=== PATIENT | male | born 1945 | race Caucasian/White ===

== ENCOUNTER 2017-12-22 16:56 | Inpatient (IN) ==
--- NOTE | 2017-12-22 17:20 | ED ---
HPI General Chief Complaint: Respiratory Symptoms Stated Complaint: SOB Time Seen by Provider: 12/22/17 17:07 History of Present Illness This patient is brought to the ER by paramedics from the assisted. He has COPD and dementia. Is been short of breath wheezing and congestion for 2 days. Reportedly had a temp of 101. He received a nebulizer in route and a dose of Solu-Medrol. Symptom severity is moderate. No alleviating factors. No exacerbating factors. Duration 2 days. He is not having any chest pain. Related Data Home Medications Medication Instructions Recorded Confirmed budesonide-formoterol [Symbicort] 2 puff INHALATION BID 12/22/17 12/22/17 calcium carbonate-vitamin D3 1 tab PO BID 12/22/17 12/22/17 [Oyster Shell Calcium-Vit D3] gabapentin 300 mg PO BID 12/22/17 12/22/17 hydrocodone-acetaminophen [[place]] 1 tab PO HS 12/22/17 12/22/17 hydrocodone-acetaminophen [[place]] 1 tab PO Q6H PRN 12/22/17 12/22/17 ipratropium-albuterol 3 ml INHALATION Q4HR 12/22/17 12/22/17 ipratropium-albuterol 3 ml INHALATION Q8H 12/22/17 12/22/17 metoprolol tartrate 12.5 mg PO BID 12/22/17 12/22/17 niacin [Slo-Niacin] 500 mg PO BID 12/22/17 12/22/17 omeprazole 20 mg PO DAILY 12/22/17 12/22/17 polyethylene glycol 3350 [Miralax] 17 gm PO DAILY 12/22/17 12/22/17 potassium chloride [Klor-Con M20] 40 meq PO BID 12/22/17 12/22/17 risperidone [Risperdal] 0.5 mg PO HS 12/22/17 12/22/17 tamsulosin 0.4 mg PO HS 12/22/17 12/22/17 temazepam [Restoril] 7.5 mg PO HS 12/22/17 12/22/17 therapeutic multivitamin [Thera] 1 tab PO DAILY 12/22/17 12/22/17 Allergies Allergy/AdvReac Type Severity Reaction Status Date / Time amoxicillin Allergy Severe Hives Verified 12/22/17 17:06 Review of Systems Except as stated in HPI: all other systems reviewed are negative PMFSH Medical History Medical History Anxiety (Acute) Anxiety (Acute) CHF (congestive heart failure) (Acute) Depressive disorder (Acute) GERD (gastroesophageal reflux disease) (Acute) Hemiplegia (Acute) Hyperlipidemia (Acute) Insomnia (Acute) Kidney disease (Acute) Neoplasm of prostate (Acute) Nontraumatic intraventricular intracerebral hemorrhage (Acute) Pressure ulcer of sacral region, stage 2 (Acute) Schizophrenia (Acute) Surgical History Surgical History Hx of heart surgery (Acute) Social History Social History Substance History: No History of Abuse Second Hand Smoke Exposure: No Smoking Status: Former smoker Tobacco Type: Cigarettes How Often Do You Have a Drink Containing Alcohol: Never Recent Travel in [facility] within the Last 8 Weeks: No Recent Out of Country Travel within the Last 8 Weeks: No Exam Narrative Exam Narrative: GENERAL: Well-nourished, well-developed patient with some dyspnea . SKIN: Focused skin assessment reveals no rash and nodules. Skin is Warm and dry. HEAD: Atraumatic. Normocephalic. EYES: Pupils equal and round. No scleral icterus. No injection or drainage. ENT: No nasal bleeding or discharge. Mucous membranes pink and moist. NECK: Trachea midline. No JVD. CARDIOVASCULAR: Regular rate and rhythm. No murmur appreciated. RESPIRATORY: No accessory muscle use. Has diffuse expiratory wheezing and rhonchi. Breath sounds equal bilaterally. GASTROINTESTINAL: Abdomen soft, non-tender, nondistended. Hepatic and splenic margins not palpable. MUSCULOSKELETAL: No obvious deformities. No clubbing. No cyanosis. No edema. NEUROLOGICAL: Awake and alert. No obvious cranial nerve deficits. Motor grossly within normal limits. Normal speech. PSYCHIATRIC: Appropriate mood and flat affect; insight and judgment reduced . Course Initial Documented Vital Signs Temperature 98.6 F 12/22/17 17:07 Pulse Rate 94 H 12/22/17 17:07 Respiratory Rate 21 12/22/17 17:07 Blood Pressure 126/83 12/22/17 17:07 Pulse Oximetry 96 12/22/17 17:07 Last Documented Vital Signs Temperature 98.6 F 12/22/17 17:07 Pulse Rate 88 12/22/17 17:40 Respiratory Rate 21 12/22/17 17:40 Blood Pressure 126/83 12/22/17 17:07 Pulse Oximetry 93 L 08/04/18 17:40 Medical Decision Making MDM Narrative Medical decision making narrative: IV placed and labs sent. 2 sets of blood cultures obtained. I gave an additional 2 nebulizers on top of the nebulizers he had in route. Saturations are 97% on 3 L nasal cannula I reviewed his chest x-ray which shows atelectasis but no consolidation CBC is normal. Metabolic studies reviewed On reassessment the patient is still wheezing and congested. Off of his oxygen he becomes hypoxic. He is 88% on room air. He is mid 90s on a cannula I placed a call to the hospitalist discussed. He will require inpatient admission given his hypoxic respiratory failure which is I believe from acute exacerbation of chronic COPD. He also was report of a prehospital fever so he may have a bronchitis type pattern but there is no pneumonia on x-ray. I will give a dose of antibiotic here Differential Diagnosis Differential Diagnosis: COPD, pneumonia, bronchitis Medical Records Medical records reviewed: Yes I reviewed the patient's medical records. Lab Data Result diagrams: 12/22/17 17:26 12/22/17 17:26 Lab Results 12/22/17 12/22/17 Range/Units 17:26 17:26 WBC 6.8 (4.0-11.0) th/mm3 RBC 5.32 (4.50-5.90) mil/mm3 Hgb 14.8 (13.0-17.0) gm/dL Hct 45.9 (39.0-51.0) % MCV 86.3 (80.0-100.0) fL MCH 27.8 (27.0-34.0) pg MCHC 32.2 (32.0-36.0) % RDW 15.2 (11.6-17.2) % Plt Count 155 (150-450) th/mm3 MPV 8.6 (7.0-11.0) fL Neut % (Auto) 54.6 (16.0-70.0) % Lymph % (Auto) 20.8 (9.0-44.0) % [place] % (Auto) 19.2 H (0.0-8.0) % Eos % (Auto) 5.0 H (0.0-4.0) % Baso % (Auto) 0.4 (0.0-2.0) % Neut # (Auto) 3.7 (1.8-7.7) th/mm3 Lymph # (Auto) 1.4 (1.0-4.8) th/mm3 [place] # (Auto) 1.3 H (0.0-0.9) th/mm3 Eos # (Auto) 0.3 (0.0-0.4) th/mm3 Baso # (Auto) 0.0 (0.0-0.2) th/mm3 WBC Differential . Differential Comment Auto diff final Sodium 140 (136-145) meq/L Potassium 4.1 (3.5-5.1) meq/L Chloride 100 (98-107) meq/L Carbon Dioxide 32.8 H (21.0-32.0) meq/L Anion Gap 7 (5-15) meq/L BUN 21 H (7-18) mg/dL Creatinine 1.21 (0.60-1.30) mg/dL Estimated GFR 59 L (>89) mL/min Random Glucose 107 H (74-106) mg/dL Calcium 9.3 (8.5-10.1) mg/dL Imaging Data Radiologist's impression: Chest X-Ray 12/22/17 17:17 CONCLUSION: Linear scarring or atelectasis at the right lung base with elevated right hemidiaphragm. Postoperative CABG and valve replacement. Discharge Plan Discharge Disposition Patient Disposition: 30 Still Patient Discharge Details Diagnosis: COPD (chronic obstructive pulmonary disease) with acute bronchitis Physicians Team ED Provider: Gavin Salazar Primary Care Provider: Kellen Blackwood Rxs /Orders / Referrals /Forms Prescriptions: No Action ipratropium-albuterol 0.5 mg-3 mg(2.5 mg base)/3 mL Solution For Nebulization 3 ml INHALATION Q8H RF: 0 ipratropium-albuterol 0.5 mg-3 mg(2.5 mg base)/3 mL Solution For Nebulization 3 ml INHALATION Q4HR RF: 0 hydrocodone-acetaminophen [[place]] 5-325 mg Tablet 1 tab PO HS RF: 0 hydrocodone-acetaminophen [[place]] 5-325 mg Tablet 1 tab PO Q6H PRN (Reason: Pain) RF: 0 therapeutic multivitamin [Thera] Tablet 1 tab PO DAILY RF: 0 temazepam [Restoril] 7.5 mg Capsule 7.5 mg PO HS RF: 0 potassium chloride [Klor-Con M20] 20 mEq Tablet,Er Particles/Crystals 40 meq PO BID RF: 0 tamsulosin 0.4 mg Capsule,Extended Release 24hr 0.4 mg PO HS RF: 0 gabapentin 300 mg Capsule 300 mg PO BID RF: 0 omeprazole 20 mg Capsule,Delayed Release(Dr/Ec) 20 mg PO DAILY RF: 0 polyethylene glycol 3350 [Miralax] 17 gram/dose Powder 17 gm PO DAILY RF: 0 risperidone [Risperdal] 0.5 mg Tablet 0.5 mg PO HS RF: 0 metoprolol tartrate 25 mg Tablet 12.5 mg PO BID RF: 0 calcium carbonate-vitamin D3 [Oyster Shell Calcium-Vit D3] 500 mg(1,250mg) - 200 unit Tablet 1 tab PO BID RF: 0 budesonide-formoterol [Symbicort] 80-4.5 mcg/actuation Hfa Aerosol Inhaler 2 puff INHALATION BID RF: 0 niacin [Slo-Niacin] 500 mg Tablet Extended Release 500 mg PO BID RF: 0 Status ED Status: With Doctor
--- NOTE | 2017-12-22 17:39 | XR ---
EXAM DATE: 12/22/2017 5:34 PM EDT AGE/SEX: 72 years / Male INDICATIONS: Shortness of breath. CLINICAL DATA: This is the patient's initial encounter. Patient reports that signs and symptoms have been present for 1 day and indicates a pain score of Nonresponsive. MEDICAL/SURGICAL HISTORY: None. CABG. COMPARISON: [facility] [place], 12/01/2010. . FINDINGS: There is previous sternotomy and CABG. Also previous prosthetic valve replacement, probably mitral. Linear atelectasis or scarring at the right lung base with elevated right hemidiaphragm. No dense con solidation or significant effusion. No pneumothorax. Tortuous aorta. CONCLUSION: Linear scarring or atelectasis at the right lung base with elevated right hemidiaphragm. Postoperative CABG and valve replacement. Electronically signed by: Isaac Marcano MD 12/22/2017 5:38 PM EDT
[2017-12-22 17:55] LABS: Baso % (Auto) 0.4 % (0.0-2.0); Eos # (Auto) 0.3 th/mm3 (0.0-0.4); Hematocrit 45.9 % (39.0-51.0); Hemoglobin 14.8 gm/dL (13.0-17.0); Lymph # (Auto) 1.4 th/mm3 (1.0-4.8); Lymph % (Auto) 20.8 % (9.0-44.0); Mean Corpuscular HGB Conc 32.2 % (32.0-36.0); Mean Corpuscular Hemoglobin 27.8 pg (27.0-34.0); Mean Corpuscular Volume 86.3 fL (80.0-100.0); Mean Platelet Volume 8.6 fL (7.0-11.0); Mono # (Auto) 1.3 th/mm3 (0.0-0.9); Mono % (Auto) 19.2 % (0.0-8.0); Neut # (Auto) 3.7 th/mm3 (1.8-7.7); Neut % (Auto) 54.6 % (16.0-70.0); Platelet Count 155 th/mm3 (150-450); Red Blood Count 5.32 mil/mm3 (4.50-5.90); Red Cell Distribution Width 15.2 % (11.6-17.2); White Blood Count 6.8 th/mm3 (4.0-11.0)
[2017-12-22 18:03] LABS: Calcium 9.3 mg/dL (8.5-10.1); Carbon Dioxide 32.8 meq/L (21.0-32.0); Potassium 4.1 meq/L (3.5-5.1)
[2017-12-22] MEDS ORDERED: Azithromycin 250 MG Tablet PO ONE (18:25)
--- NOTE | 2017-12-22 18:43 | P.HP ---
History of Present Illness Primary Care Physician: Kellen Blackwood DO History of Present Illness: This is a 72-year-old male patient with a medical history significant for COPD and dementia who was [facility] due to a chief complaint of congestion and increased work of breathing for the past 2 days. At the penitentiary he was noted to have an elevated temperature of 101. In route to the ER the patient received 2 nebulizers and a dose of Solu-Medrol 125 mg IV. When the patient got to the ER he was still exhibiting some increased work of breathing and wheezing. He was given a dose of azithromycin, and 2 nebulizers. Patient breathing a little butter, but was desaturating when nasal canula removed. - Diagnosis (1) COPD (chronic obstructive pulmonary disease) with acute bronchitis Review of Systems Constitutional: Reports fever(s), Denies chills Eyes: Denies discharge Ears, Nose, Mouth, and Throat: Reports abnormal hearing, Reports poor balance Cardiovascular: Reports shortness of breath with activity, Reports shortness of breath when lying down, Denies chest pain Respiratory: Reports chest congestion, Reports cough Gastrointestinal: Denies abdominal pain, Denies black, tarry stools, Denies loose stools Musculoskeletal: Denies back pain, Denies neck pain Neurologic: Reports abnormal hearing PMFSH - History History Provided By: Patient - Medical History Medical History: Medical History (Last Updated 12/22/17 @ 17:31 by Jessica Velásquez) Anxiety Anxiety CHF (congestive heart failure) Depressive disorder GERD (gastroesophageal reflux disease) Hemiplegia Hyperlipidemia Insomnia Kidney disease Neoplasm of prostate Nontraumatic intraventricular intracerebral hemorrhage Pressure ulcer of sacral region, stage 2 Schizophrenia - Surgical History Surgical History: Surgical History (Last Updated 12/22/17 @ 17:22 by Jessica Velásquez) Hx of heart surgery - Tobacco History Second Hand Smoke Exposure: No Tobacco Use In Past 30 Days: No (QUIT TOO MANY YEARS AGO) Smoking Status: Former smoker Tobacco Type: Cigarettes - Alcohol History How Often Do You Have a Drink Containing Alcohol: Never - Substance Use History Substance History: No History of Abuse - Travel History Recent Travel in the [place] Within the Last 8 Weeks: No Recent Travel Out of the Country Within the Last 8 Weeks: No - Immunization History Tetanus Immunization: >5 Years Hx Influenza Vaccine This Season: Yes Medications and Allergies Allergies Allergy/AdvReac Type Severity Reaction Status Date / Time amoxicillin Allergy Severe Hives Verified 12/22/17 17:06 Home Medications Medication Instructions Recorded Confirmed Type budesonide-formoterol [Symbicort] 2 puff INHALATION BID 12/22/17 12/22/17 History calcium carbonate-vitamin D3 1 tab PO BID 12/22/17 12/22/17 History [Oyster Shell Calcium-Vit D3] gabapentin 300 mg PO BID 12/22/17 12/22/17 History hydrocodone-acetaminophen [[place]] 1 tab PO HS 12/22/17 12/22/17 History hydrocodone-acetaminophen [[place]] 1 tab PO Q6H PRN 12/22/17 12/22/17 History ipratropium-albuterol 3 ml INHALATION Q4HR 12/22/17 12/22/17 History ipratropium-albuterol 3 ml INHALATION Q8H 12/22/17 12/22/17 History metoprolol tartrate 12.5 mg PO BID 12/22/17 12/22/17 History niacin [Slo-Niacin] 500 mg PO BID 12/22/17 12/22/17 History omeprazole 20 mg PO DAILY 12/22/17 12/22/17 History polyethylene glycol 3350 [Miralax] 17 gm PO DAILY 12/22/17 12/22/17 History potassium chloride [Klor-Con M20] 40 meq PO BID 12/22/17 12/22/17 History risperidone [Risperdal] 0.5 mg PO HS 12/22/17 12/22/17 History tamsulosin 0.4 mg PO HS 12/22/17 12/22/17 History temazepam [Restoril] 7.5 mg PO HS 12/22/17 12/22/17 History therapeutic multivitamin [Thera] 1 tab PO DAILY 12/22/17 12/22/17 History Exam Vital signs: Vital Signs 12/22/17 17:07 12/22/17 17:40 Temperature 98.6 F Pulse Rate 94 H 88 Respiratory Rate 21 21 Blood Pressure 126/83 Pulse Oximetry 96 93 L Intake & Output 12/21/17 12/22/17 12/22/17 18:59 06:59 18:59 Weight 136.078 kg - Constitutional no acute distress, cooperative - Routine HEENT Exam Head: Present: normocephalic, atraumatic Eye: Present: EOMI ENT: Present: mucous membranes moist - Routine Neck Exam Present: supple, full ROM - Routine Chest/Breast/Axilla Exam Chest wall: Absent: tenderness, mass - Routine Respiratory Exam Present: wheezes, crackles. Absent: accessory muscle use, decreased breath sounds, respiratory distress - Routine Cardiovascular Exam Present: RRR, S1, S2. Absent: murmur - Routine Abdominal Exam Present: distended. Absent: soft, tenderness - Routine Extremities Exam Absent: cyanosis, clubbing, edema Comments: Left sided lower weakness - Routine Skin Exam Comments: Stage 2 decubitus ulcer noted by nurse - Routine Neurological Exam Present: alert, oriented X3 Results - Labs CBC & Chem 7: 12/22/17 17:26 12/22/17 17:26 Labs: Laboratory Results - last 24 hr 12/22/17 12/22/17 17:26 17:26 WBC 6.8 RBC 5.32 Hgb 14.8 Hct 45.9 MCV 86.3 MCH 27.8 MCHC 32.2 RDW 15.2 Plt Count 155 MPV 8.6 Neut % (Auto) 54.6 Lymph % (Auto) 20.8 [place] % (Auto) 19.2 H Eos % (Auto) 5.0 H Baso % (Auto) 0.4 Neut # (Auto) 3.7 Lymph # (Auto) 1.4 [place] # (Auto) 1.3 H Eos # (Auto) 0.3 Baso # (Auto) 0.0 WBC Differential . Differential Comment Auto diff final Sodium 140 Potassium 4.1 Chloride 100 Carbon Dioxide 32.8 H Anion Gap 7 BUN 21 H Creatinine 1.21 Estimated GFR 59 L Random Glucose 107 H Calcium 9.3 - Imaging Impressions Chest X-Ray 12/22/17 17:17 CONCLUSION: Linear scarring or atelectasis at the right lung base with elevated right hemidiaphragm. Postoperative CABG and valve replacement. Caprini VTE Risk Assessment Caprini VTE Risk Assessment: No/Low Risk (score <= 1) Caprini Risk Assessment Model: Point Value = 1 Point Value = 2 Point Value = 3 Point Value = 5 Age 41-60 Minor surgery BMI > 25 kg/m2 Swollen legs Varicose veins or History of unexplained or recurrent spontaneous Oral contraceptives or hormone replacement Sepsis (< 1 month) Serious lung disease, including pneumonia (< 1 month) Abnormal pulmonary function Acute myocardial infarction Congestive heart failure (< 1 month) History of inflammatory bowel disease Medical patient at bed rest Age 61-74 Arthroscopic surgery Major open surgery (> 45 min) Laparoscopic surgery (> 45 min) Malignancy Confined to bed (> 72 hours) Immobilizing plaster cast Central venous access Age >= 75 History of VTE Family history of VTE Factor V Leiden Prothrombin [id number] Lupus anticoagulant Anticardiolipin antibodies Elevated serum homocysteine Heparin-induced thrombocytopenia Other congenital or acquired thrombophilia Stroke (< 1 month) Elective arthroplasty Hip, pelvis, or leg fracture Acute spinal cord injury (< 1 month) Prophylaxis Regimen: Total Risk Factor Score Risk Level Prophylaxis Regimen 0-1 Low Early ambulation 2 Moderate Order ONE of the following: *Sequential Compression Device (SCD) *Heparin 5000 units SQ BID 3-4 Higher Order ONE of the following medications: *Heparin 5000 units SQ TID *Enoxaparin/Lovenox 40 mg SQ daily (WT < 150 kg, CrCl > 30 mL/min) *Enoxaparin/Lovenox 30 mg SQ daily (WT < 150 kg, CrCl > 10-29 mL/min) *Enoxaparin/Lovenox 30 mg SQ BID (WT < 150 kg, CrCl > 30 mL/min) AND/OR *Sequential Compression Device (SCD) 5 or more Highest Order ONE of the following medications: *Heparin 5000 units SQ TID (Preferred with Epidurals) *Enoxaparin/Lovenox 40 mg SQ daily (WT < 150 kg, CrCl > 30 mL/min) *Enoxaparin/Lovenox 30 mg SQ daily (WT < 150 kg, CrCl > 10-29 mL/min) *Enoxaparin/Lovenox 30 mg SQ BID (WT < 150 kg, CrCl > 30 mL/min) AND *Sequential Compression Device (SCD) Assessment and Plan - Assessment (1) COPD (chronic obstructive pulmonary disease) with acute bronchitis Code(s): J44.0 - Chronic obstructive pulmonary disease with acute lower respiratory infection; J20.9 - Acute bronchitis, unspecified Status: Acute - Plan 72 yo male [facility] with medical hx significant for COPD presents with Shortness of breath COPD Exacerbation - s/p IV solumedrol 125 mg by EVAC, s/p azithromycin 500 mg x1 in ER - Cont: solumedrol 60 mg IV BID due to significant wheezing on exam - Levaquine 750 mg PO (patient from nursing home0 - Duonebs & albuterol, continue home symbicort - Will need home walk test prior to discharge - supplemental O2 as needed - Blood cultures obtained, no fever or leukocytosis - BNP HTN - continue metoprolol 12.5 mg BID Depression/Mood Disorder - continue risperdal 0.5 mg HS CKD - Cr on admission 30, was similar back in November - Renally dose all meds and avoid nephrotoxic agents BPH - continue flomas Bilat SCDs for DVT prophy Case discussed with nurse and ED physician Discharge Planning: Back to [facility]iary when clinically improved
[2017-12-22] MEDS ORDERED: Bisacodyl 10 MG Supp RECTAL PRN (18:49)
[2017-12-23] MEDS: Budesonide-Formoterol 80/4.5 MCG 6.9 GM Inhaler INH SCH ×3 (00:01→23:45)
[2017-12-23] MEDS: Metoprolol Tartrate 25 MG Tablet PO SCH ×3 (00:01→21:28)
[2017-12-23] MEDS: Senna/Docusate Sodium 8.6/50 MG Tablet PO SCH ×3 (00:01→21:28)
[2017-12-23] MEDS: MethylPREDNISolone Sod Succinate Inj 125 MG/2 ML Vial IV.PUSH SCH ×2 (06:03→17:11)
[2017-12-23] MEDS ORDERED: Azithromycin 250 MG Tablet PO SCH (09:00)
--- NOTE | 2017-12-23 10:14 | P.PN ---
Subjective Interval history: Follow up for COPD in a patient with dementia. Patient is resting in bed, wakes up - appears somewhat confused. Denies any chest pain, shortness of breath, fever, chills. On nasal cannula. Physical Exam Vital signs: Vital Signs 12/22/17 17:07 12/22/17 17:40 12/22/17 18:47 Temperature 98.6 F 98.4 F Pulse Rate 94 H 88 98 H Respiratory Rate 21 21 18 Blood Pressure 126/83 127/83 Pulse Oximetry 96 93 L 12/22/17 19:25 12/22/17 19:42 12/22/17 21:32 Temperature Pulse Rate 96 H 93 H 98 H Respiratory Rate 18 19 18 Blood Pressure 131/76 110/63 Pulse Oximetry 95 94 L 96 12/22/17 23:49 12/23/17 03:42 12/23/17 04:01 Temperature 98.1 F Pulse Rate 95 H 103 H 99 H Respiratory Rate 18 18 18 Blood Pressure 115/65 114/69 Pulse Oximetry 95 95 12/23/17 07:18 12/23/17 07:41 Temperature 98.5 F Pulse Rate 98 H 100 H Respiratory Rate 20 20 Blood Pressure 118/84 Pulse Oximetry 100 98 Intake & Output 12/22/17 12/23/17 12/23/17 18:59 06:59 18:59 Weight 136.078 kg 136.078 kg Other: Weight On Admission 136.078 kg Narrative: GENERAL: Alert, confused, NAD. SKIN: Warm and dry. HEAD: Normocephalic. EYES: No scleral icterus. No injection or drainage. NECK: Supple, trachea midline. No JVD or lymphadenopathy. CARDIOVASCULAR: Regular rate and rhythm without murmurs, gallops, or rubs. RESPIRATORY: Breath sounds equal bilaterally. No accessory muscle use. GASTROINTESTINAL: Abdomen soft, non-tender, nondistended. MUSCULOSKELETAL: No cyanosis, or edema. BACK: Nontender without obvious deformity. No CVA tenderness. Results - Labs CBC & Chem 7: 12/22/17 17:26 12/22/17 17:26 Laboratory Results - last 24 hr 12/22/17 12/22/17 12/22/17 17:26 17:26 17:26 WBC 6.8 RBC 5.32 Hgb 14.8 Hct 45.9 MCV 86.3 MCH 27.8 MCHC 32.2 RDW 15.2 Plt Count 155 MPV 8.6 Neut % (Auto) 54.6 Lymph % (Auto) 20.8 [place] % (Auto) 19.2 H Eos % (Auto) 5.0 H Baso % (Auto) 0.4 Neut # (Auto) 3.7 Lymph # (Auto) 1.4 [place] # (Auto) 1.3 H Eos # (Auto) 0.3 Baso # (Auto) 0.0 WBC Differential . Differential Comment Auto diff final Sodium 140 Potassium 4.1 Chloride 100 Carbon Dioxide 32.8 H Anion Gap 7 BUN 21 H Creatinine 1.21 Estimated GFR 59 L POC Glucose Random Glucose 107 H Calcium 9.3 B-Natriuretic Peptide 15 12/22/17 22:03 WBC RBC Hgb Hct MCV MCH MCHC RDW Plt Count MPV Neut % (Auto) Lymph % (Auto) [place] % (Auto) Eos % (Auto) Baso % (Auto) Neut # (Auto) Lymph # (Auto) [place] # (Auto) Eos # (Auto) Baso # (Auto) WBC Differential Differential Comment Sodium Potassium Chloride Carbon Dioxide Anion Gap BUN Creatinine Estimated GFR POC Glucose 233 H Random Glucose Calcium B-Natriuretic Peptide - Imaging Impressions Chest X-Ray 12/22/17 17:17 CONCLUSION: Linear scarring or atelectasis at the right lung base with elevated right hemidiaphragm. Postoperative CABG and valve replacement. Assessment and Plan - Assessment (1) COPD (chronic obstructive pulmonary disease) with acute bronchitis Code(s): J44.0 - Chronic obstructive pulmonary disease with acute lower respiratory infection; J20.9 - Acute bronchitis, unspecified Status: Acute - Plan 72 yo male patient of residential with medical hx significant for COPD presents with Shortness of breath COPD Exacerbation - s/p IV solumedrol 125 mg by EVAC, s/p azithromycin 500 mg x1 in ER - Continue solumedrol 60 mg IV BID due to significant wheezing on exam - Levaquine 750 mg PO - Duonebs, continue home Symbicort - supplemental O2 as needed. Will try to wean off O2. - Blood cultures obtained, no fever or leukocytosis - BNP HTN - continue metoprolol 12.5 mg BID Depression/Mood Disorder - continue Risperdal 0.5 mg HS CKD - Cr on admission 06.19, was similar back in November - Renally dose all meds and avoid nephrotoxic agents BPH - continue Flomax Full code. SCDs.
[2017-12-23] MEDS: guaiFENesin 600 MG ER Tablet PO SCH ×2 (11:40→21:28)
[2017-12-23 13:35] LABS: Baso % (Auto) 0.1 % (0.0-2.0); Hemoglobin 14.3 gm/dL (13.0-17.0); Lymph # (Auto) 0.5 th/mm3 (1.0-4.8); Mean Corpuscular HGB Conc 32.5 % (32.0-36.0); Mean Corpuscular Volume 86.2 fL (80.0-100.0); Mean Platelet Volume 8.3 fL (7.0-11.0); Mono # (Auto) 0.4 th/mm3 (0.0-0.9); Mono % (Auto) 5.7 % (0.0-8.0); Neut # (Auto) 6.9 th/mm3 (1.8-7.7); Neut % (Auto) 88.2 % (16.0-70.0); Platelet Count 185 th/mm3 (150-450); Red Blood Count 5.11 mil/mm3 (4.50-5.90); White Blood Count 7.9 th/mm3 (4.0-11.0)
[2017-12-24] MEDS: MethylPREDNISolone Sod Succinate Inj 125 MG/2 ML Vial IV.PUSH SCH ×3 (05:45→21:14)
--- NOTE | 2017-12-24 09:21 | P.PN ---
Subjective Interval history: Follow up for COPD exacerbation, dementia. The patient is awake, alert, oriented to self only. He reports feeling short of breath with cough, mostly nonproductive. Denies fevers/chills. Denies chest pain. He has no other medical complaints at this time. Physical Exam Vital signs: Vital Signs 12/23/17 11:11 12/23/17 13:19 12/23/17 15:38 Temperature 98.8 F 98.6 F Pulse Rate 92 H 94 H 83 Respiratory Rate 20 25 H 20 Blood Pressure 116/72 113/73 Pulse Oximetry 95 94 L 12/23/17 19:27 12/23/17 20:34 12/23/17 23:22 Temperature 98.2 F 97.6 F Pulse Rate 76 90 Respiratory Rate 15 18 15 Blood Pressure 139/93 H 112/67 Pulse Oximetry 93 L 96 93 L 12/23/17 23:42 12/24/17 03:01 12/24/17 03:32 Temperature 97.6 F Pulse Rate 84 80 93 H Respiratory Rate 18 18 15 Blood Pressure 127/57 L Pulse Oximetry 91 L 12/24/17 05:55 12/24/17 07:15 Temperature 98.3 F Pulse Rate 80 90 Respiratory Rate 18 18 Blood Pressure 123/61 Pulse Oximetry 95 Intake & Output 12/23/17 12/24/17 12/24/17 18:59 06:59 18:59 Intake Total 150 / 150 150 / 150 Balance 150 / 150 150 / 150 Intake: IV 150 / 150 150 / 150 Levaquin 750 mg Premix Inj 150 150 / 150 150 / 150 ML @ 100 mls/hr IV.SIG Q24H [facility] Rx#:[id number] Narrative: GENERAL: Well-nourished, well-developed pleasantly confused elderly obese male patient in [facility]. SKIN: Warm and dry. No rash. HEENT: Normocephalic. Atraumatic. Pupils equal and round. Mucous membranes pink and moist. NECK: Supple. Trachea midline. CARDIOVASCULAR: Regular rate and rhythm. No murmur appreciated. RESPIRATORY: No accessory muscle use. Diffuse expiratory wheezing with scattered rhonchi. Breath sounds equal bilaterally. GASTROINTESTINAL: Abdomen soft, non-tender, nondistended. Normoactive bowel sounds x4. MUSCULOSKELETAL: No obvious deformities. Extremities without clubbing, cyanosis , or edema. NEUROLOGICAL: Awake and alert, oriented to self only. No obvious cranial nerve deficits. Moving all extremities spontaneously. Normal speech. PSYCHIATRIC: Insight and judgment poor. Results - Labs CBC & Chem 7: 12/23/17 13:15 12/22/17 17:26 Laboratory Results - last 24 hr 12/23/17 13:15 WBC 7.9 RBC 5.11 Hgb 14.3 Hct 44.0 MCV 86.2 MCH 28.0 MCHC 32.5 RDW 15.0 Plt Count 185 MPV 8.3 Neut % (Auto) 88.2 H Lymph % (Auto) 6.0 L Thomas % (Auto) 5.7 Eos % (Auto) 0.0 Baso % (Auto) 0.1 Neut # (Auto) 6.9 Lymph # (Auto) 0.5 L Thomas # (Auto) 0.4 Eos # (Auto) 0.0 Baso # (Auto) 0.0 WBC Differential . Differential Comment Auto diff final Microbiology 12/22/17 17:15 Blood - Peripheral Aerobic Blood Culture - Preliminary No growth in 1 day 12/22/17 17:15 Blood - Peripheral Anaerobic Blood Culture - Preliminary No growth in 1 day 12/22/17 17:15 Blood - Peripheral Aerobic Blood Culture - Preliminary No growth in 1 day 12/22/17 17:15 Blood - Peripheral Anaerobic Blood Culture - Preliminary No growth in 1 day - Imaging Impressions Chest X-Ray 12/22/17 17:17 CONCLUSION: Linear scarring or atelectasis at the right lung base with elevated right hemidiaphragm. Postoperative CABG and valve replacement. Assessment and Plan - Assessment (1) COPD (chronic obstructive pulmonary disease) with acute bronchitis Code(s): J44.0 - Chronic obstructive pulmonary disease with acute lower respiratory infection; J20.9 - Acute bronchitis, unspecified Status: Acute - Plan 72 yo male patient of senior living with medical hx significant for COPD presents with Acute COPD Exacerbation: patient presented with SOB, wheezing. S/p IV solumedrol 125 mg by EVAC, s/p azithromycin 500 mg x1 in ER. - CXR reviewed, shows linear scarring or atelectasis at right lung base - BNP 15, doubt CHF. - Continue solumedrol 60 mg IV BID due to significant wheezing on exam - Continue antibiotics with IV Levaquin 750 mg daily - Duonebs, continue home Symbicort - supplemental O2 as needed. Will try to wean off O2. - Blood cultures obtained, NGTD, no fever or leukocytosis HTN - continue metoprolol 12.5 mg BID Dementia/Depression/Mood Disorder - continue Risperdal 0.5 mg HS CKD - Cr on admission 06.19, was similar back in November - Renally dose all meds and avoid nephrotoxic agents BPH - continue Flomax Sacral Ulcer -present on admission -consult wound care Full code. SCDs. Discharge Planning: Discharge pending further clinical improvement. Not yet ready for discharge. Plan to return to SNF at discharge.
[2017-12-24] MEDS: Budesonide-Formoterol 80/4.5 MCG 6.9 GM Inhaler INH SCH ×2 (09:54→21:16)
[2017-12-24] MEDS: guaiFENesin 600 MG ER Tablet PO SCH ×2 (09:55→21:11)
[2017-12-24] MEDS: Metoprolol Tartrate 25 MG Tablet PO SCH ×2 (09:56→21:12)
[2017-12-24] MEDS: Senna/Docusate Sodium 8.6/50 MG Tablet PO SCH ×2 (09:57→21:16)
--- NOTE | 2017-12-24 18:24 | P.PNWCN ---
Wound Care Nurse Consult Description: Received consult from Lyssa REYES for new ostomy teaching Communicated with: BOOGIE Tena CDU Recommendation: 1.Please cleanse buttock area gently with soap and water and Remedy barrier wipes and pat dry. Apply Calazime skin protectant paste BID and PRN, covering DTI and small moisture related partial thickness skin loss. 2. Please turn patinet from L side to R side every 2 hours and PRN for comfort and offloading of pressure from lamar prominences 3. Please place patient on airapy low airloss mattress Wound/Pressure Injury - Wound Left Buttocks Wound Staging: DTI Wound Assessment: Ongoing Length: 1 (cm ) Width: 1.4 (cm) Depth: 0 (intact non blanchable purple discoloration to skin) Surrounding Tissue Temperature: Warm Drainage Amount: None Drainage Odor: No Odor Dressing Status: Open to Air Cleansing Solution: Soap and water Topical: skin barrier film spray - Additional Information Patient seen for pressure ulcer to sacrum/buttocks around 1145. Patient was assessed with BOOGIE Tena, racebook writer and LONGWALL SHEARER OPERATOR. Patient was turned with maximum assistance to R side to reveal large amount of brown liquid stool.LONGWALL SHEARER OPERATOR and BOOGIE Lynn cleansed patient's buttock area with soap and water to remove stool revealing scar tissue to L buttock and small non blanchable purple discoloration to L buttock just distal to scar tissue. Assessment Technician palpated purple discoloration and small amount of sero-sanguinous drainage was expressed. Small L perianal partial thickness, moisture related wound is noted. No Calazime skin protectant paste was available on hand. Sprayed DTI and L perianal area partial thickness skin loss with skin barrier film spray and left open to air Incision - Patient Status Premedicated for Pain Prior to Dressing Change: No
[2017-12-25] MEDS: MethylPREDNISolone Sod Succinate Inj 125 MG/2 ML Vial IV.PUSH SCH ×3 (05:10→22:20)
--- NOTE | 2017-12-25 09:33 | XR ---
EXAM DATE: 12/25/2017 9:31 AM EDT AGE/SEX: 72 years / Male INDICATIONS: Shortness of breath. CLINICAL DATA: This is the patient's sequela encounter. Patient reports that signs and symptoms have been present for 3 days and indicates a pain score of 1/10. MEDICAL/SURGICAL HISTORY: Congestive heart failure. CABG. [place] [facility] [place]. . FINDINGS: A single AP view of the chest demonstrates previous CABG. Left lung clear. Slight elevation right hem idiaphragm and right basilar scarring. The cardiomediastinal contours are unremarkable. Osseous str uctures are intact. CONCLUSION: Minimal right basilar density, stable Electronically signed by: Be Petersen MD 12/25/2017 9:32 AM EDT
[2017-12-25 09:42] LABS: ABG Base Excess 3.1 mmol/L (-2-2); ABG PCO2 37 mmHg (38-42); ABG PO2 56 mmHg (61-120)
--- NOTE | 2017-12-25 09:54 | P.PN ---
Subjective Interval history: Follow-up for COPD exacerbation, dementia. The patient is currently awake, alert, oriented to self only, currently hallucinating, saying he sees a feral dog outside of the window. He admits to feeling short of breath while at rest with nonproductive cough. He denies fevers or chills. Denies any chest pain. He is an extremely unreliable historian with his advanced dementia. Physical Exam Vital signs: Vital Signs 12/24/17 10:14 12/24/17 11:39 12/24/17 15:38 Temperature 98.2 F 97.4 F L Pulse Rate 101 H 95 H 101 H Respiratory Rate 22 18 18 Blood Pressure 118/69 136/81 Pulse Oximetry 96 91 L 93 L 12/24/17 15:49 12/24/17 20:00 12/24/17 20:18 Temperature 97.6 F Pulse Rate 103 H 106 H 110 H Respiratory Rate 20 17 16 Blood Pressure 126/80 Pulse Oximetry 93 L 95 12/25/17 00:00 12/25/17 02:51 Temperature 97.3 F L Pulse Rate 95 H 101 H Respiratory Rate 16 28 H Blood Pressure 149/85 H Pulse Oximetry 94 L Intake & Output 12/24/17 12/25/17 12/25/17 18:59 06:59 18:59 Intake Total 150 / 150 150 / 150 Balance 150 / 150 150 / 150 Intake: IV 150 / 150 150 / 150 Levaquin 750 mg Premix Inj 150 150 / 150 150 / 150 ML @ 100 mls/hr IV.SIG Q24H [facility] Rx#:[id number] Other: Date of Last Bowel Movement 12/24/17 12/24/17 Narrative: GENERAL: Well-nourished, well-developed confused elderly obese male patient in [facility]. SKIN: Warm and dry. No rash. HEENT: Normocephalic. Atraumatic. Pupils equal and round. Mucous membranes pink and moist. NECK: Supple. Trachea midline. CARDIOVASCULAR: Regular rate and rhythm. No murmur appreciated. RESPIRATORY: No accessory muscle use. Diffuse expiratory wheezing with scattered rhonchi. Breath sounds equal bilaterally. GASTROINTESTINAL: Abdomen soft, non-tender, nondistended. Normoactive bowel sounds x4. MUSCULOSKELETAL: No obvious deformities. Extremities without clubbing, cyanosis , or edema. NEUROLOGICAL: Awake and alert, oriented to self only. No obvious cranial nerve deficits. Moving all extremities spontaneously. Normal speech. PSYCHIATRIC: Insight and judgment poor. Results - Labs CBC & Chem 7: 12/23/17 13:15 12/22/17 17:26 Laboratory Results - last 24 hr 12/25/17 12/25/17 02:22 08:51 Puncture Site Left radial Patient Temperature 98.6 O2 Saturation 88 L* ABG pH 7.47 H ABG pCO2 37 L ABG pO2 56 L* ABG HCO3 27 H ABG O2 Content 18.6 ABG Base Excess 3.1 H ABG Methemoglobin 0.9 Corey Test Present Hemoglobin 15.0 Carboxyhemoglobin 0.9 Inspired O2 21 Critical Value Yes Stl C.difficile Tox PCR Positive H St C. diff Tox Epid 027 Negative Microbiology 12/22/17 17:15 Blood - Peripheral Aerobic Blood Culture - Preliminary No growth in 2 days 12/22/17 17:15 Blood - Peripheral Anaerobic Blood Culture - Preliminary No growth in 2 days 12/22/17 17:15 Blood - Peripheral Aerobic Blood Culture - Preliminary No growth in 2 days 12/22/17 17:15 Blood - Peripheral Anaerobic Blood Culture - Preliminary No growth in 2 days - Imaging Impressions Chest X-Ray 12/25/17 00:00 CONCLUSION: Minimal right basilar density, stable Assessment and Plan - Assessment (1) COPD (chronic obstructive pulmonary disease) with acute bronchitis Code(s): J44.0 - Chronic obstructive pulmonary disease with acute lower respiratory infection; J20.9 - Acute bronchitis, unspecified Status: Acute - Plan 72 yo male patient of [facility] with medical hx significant for COPD presents with: Acute COPD Exacerbation: patient presented with SOB, wheezing. S/p IV solumedrol 125 mg by EVAC, s/p azithromycin 500 mg x1 in ER. - CXR reviewed, shows linear scarring or atelectasis at right lung base - BNP 15, doubt CHF. - Continue solumedrol 60 mg IV q8h due to significant wheezing on exam - Continue antibiotics with IV Levaquin 750 mg daily - Duonebs, continue home Symbicort - supplemental O2 as needed. Will try to wean off O2. - Blood cultures obtained, NGTD, no fever or leukocytosis - Incentive spirometer, acapella if patient able to follow instructions - Still wheezing today, not improved, repeat ABG and CXR stat, discussed with Dr. Carlson Sepsis with C.difficile: new diagnosis on this admission. Meets sepsis with tachycardia and tachypnea, suspected source-C.difficile. -started on Vancomycin 125mg po qid -monitor BMs -consider changing fluoroquinolone antibiotic to cephalosporin if able to confirm no allergy or taken previously (pt has penicillin allergy) HTN - continue metoprolol 12.5 mg BID Dementia/Depression/Mood Disorder - continue Risperdal 0.5 mg HS CKD - Cr on admission 06.19, was similar back in November - Renally dose all meds and avoid nephrotoxic agents BPH - continue Flomax Sacral Ulcer -present on admission -consult wound care, appreciate recommendations Hallucinations/Encephalopathy: possibly steroid induced psychosis vs worsening dementia -will attempt to wean steroids jhoan -monitor Full code. SCDs. Discharge Planning: Discharge pending further clinical improvement. Not yet ready for discharge. Plan to return to SNF at discharge.
[2017-12-25] MEDS: Metoprolol Tartrate 25 MG Tablet PO SCH ×2 (10:27→22:19)
[2017-12-25] MEDS: guaiFENesin 600 MG ER Tablet PO SCH ×2 (10:27→22:19)
[2017-12-25] MEDS: Budesonide-Formoterol 80/4.5 MCG 6.9 GM Inhaler INH SCH ×2 (10:27→22:23)
[2017-12-25] MEDS: Senna/Docusate Sodium 8.6/50 MG Tablet PO SCH ×2 (10:28→22:23)
[2017-12-26] MEDS: MethylPREDNISolone Sod Succinate Inj 125 MG/2 ML Vial IV.PUSH SCH ×3 (04:19→22:23)
[2017-12-26 06:47] LABS: Baso % (Auto) 0.2 % (0.0-2.0); Eos % (Auto) 0.1 % (0.0-4.0); Hematocrit 43.9 % (39.0-51.0); Hemoglobin 14.3 gm/dL (13.0-17.0); Lymph # (Auto) 0.5 th/mm3 (1.0-4.8); Lymph % (Auto) 4.2 % (9.0-44.0); Mean Corpuscular HGB Conc 32.6 % (32.0-36.0); Mean Corpuscular Hemoglobin 28.3 pg (27.0-34.0); Mean Platelet Volume 8.2 fL (7.0-11.0); Mono # (Auto) 0.9 th/mm3 (0.0-0.9); Mono % (Auto) 7.2 % (0.0-8.0); Neut # (Auto) 10.7 th/mm3 (1.8-7.7); Neut % (Auto) 88.3 % (16.0-70.0); Platelet Count 215 th/mm3 (150-450); Red Blood Count 5.04 mil/mm3 (4.50-5.90); White Blood Count 12.1 th/mm3 (4.0-11.0)
[2017-12-26 07:20] LABS: Carbon Dioxide 25.3 meq/L (21.0-32.0)
[2017-12-26 07:23] LABS: Potassium 4.8 meq/L (3.5-5.1)
[2017-12-26 07:57] LABS: Lymphocytes 2 % (9-44); Monocytes 5 % (0-8); Myelocytes 2 % (0-0); Platelet Estimate Normal (Normal); Platelet Morphology Normal (Normal); Tallied Nucleated RBC 1 (0-0)
--- NOTE | 2017-12-26 10:08 | P.PN ---
Subjective Interval history: Follow-up for COPD exacerbation, dementia, C. difficile. Patient appears much better today. He is currently awake, alert, oriented to self only which is his baseline. He does not appear to be hallucinating today. He admits to feeling short of breath with wheezing and nonproductive cough. Denies fevers, but does report feeling cold with chills. Denies any chest pain. 2 reported large diarrhea bowel movements yesterday, however none so far today. Denies any abdominal pain or nausea/vomiting. No other medical complaints at this time. Physical Exam Vital signs: Vital Signs 12/25/17 10:26 12/25/17 12:00 12/25/17 16:00 Temperature 98.4 F 97.7 F 98.3 F Pulse Rate 110 H 104 H 101 H Respiratory Rate 20 18 20 Blood Pressure 144/75 H 158/87 H 143/82 H Pulse Oximetry 98 98 12/25/17 19:36 12/25/17 20:00 12/26/17 00:00 Temperature 98 F Pulse Rate 102 H 105 H 105 H Respiratory Rate 24 18 18 Blood Pressure 148/77 H 165/74 H Pulse Oximetry 95 94 L 95 12/26/17 03:31 12/26/17 04:46 12/26/17 07:58 Temperature 98.2 F 98.0 F Pulse Rate 104 H 107 H Respiratory Rate 28 H 22 20 Blood Pressure 149/92 H 140/89 Pulse Oximetry 93 L 95 Intake & Output 12/25/17 12/26/17 12/26/17 18:59 06:59 18:59 Intake Total 150 / 150 Balance 150 / 150 Intake: IV 150 / 150 Levaquin 750 mg Premix Inj 150 150 / 150 ML @ 100 mls/hr IV.SIG Q24H [facility] Rx#:[id number] Other: Date of Last Bowel Movement 12/24/17 12/25/17 Narrative: GENERAL: Well-nourished, well-developed confused elderly obese male patient in [facility]. SKIN: Warm and dry. No rash. HEENT: Normocephalic. Atraumatic. Pupils equal and round. Mucous membranes pink and moist. NECK: Supple. Trachea midline. CARDIOVASCULAR: Regular rate and rhythm. No murmur appreciated. RESPIRATORY: No accessory muscle use. Diffuse expiratory wheezing with scattered rhonchi, mildly improved today. Breath sounds equal bilaterally. GASTROINTESTINAL: Abdomen soft, non-tender, nondistended. Normoactive bowel sounds x4. MUSCULOSKELETAL: No obvious deformities. Extremities without clubbing, cyanosis , or edema. NEUROLOGICAL: Awake and alert, oriented to self only. No obvious cranial nerve deficits. Moving all extremities spontaneously. Normal speech. PSYCHIATRIC: Insight and judgment poor. Results - Labs CBC & Chem 7: 12/26/17 06:18 12/26/17 06:18 Laboratory Results - last 24 hr 12/26/17 12/26/17 06:18 06:18 WBC 12.1 H RBC 5.04 Hgb 14.3 Hct 43.9 MCV 87.0 MCH 28.3 MCHC 32.6 RDW 15.0 Plt Count 215 MPV 8.2 Prelim Diff (Auto) Slide review pending Neut % (Auto) 88.3 H Lymph % (Auto) 4.2 L Boone % (Auto) 7.2 Eos % (Auto) 0.1 Baso % (Auto) 0.2 Neut # (Auto) 10.7 H Lymph # (Auto) 0.5 L Boone # (Auto) 0.9 Eos # (Auto) 0.0 Baso # (Auto) 0.0 WBC Differential Manual diff final Seg Neuts % (Manual) 91 H Lymphocytes % (Manual) 2 L Monocytes % (Manual) 5 Myelocytes % (Man) 2 H Abs Neuts (Manual) 11.3 H Nucleated RBCs/100 WBC 1 H Differential Comment . Platelet Estimate Normal Platelet Morphology Normal Sodium 136 Potassium 4.8 Chloride 101 Carbon Dioxide 25.3 Anion Gap 10 BUN 42 H Creatinine 1.45 H Estimated GFR 48 L Random Glucose 166 H Calcium 9.0 Microbiology 12/22/17 17:15 Blood - Peripheral Aerobic Blood Culture - Preliminary No growth in 3 days 12/22/17 17:15 Blood - Peripheral Anaerobic Blood Culture - Preliminary No growth in 3 days 12/22/17 17:15 Blood - Peripheral Aerobic Blood Culture - Preliminary No growth in 3 days 12/22/17 17:15 Blood - Peripheral Anaerobic Blood Culture - Preliminary No growth in 3 days - Imaging Chest X-Ray 12/22/17 17:17 CONCLUSION: Linear scarring or atelectasis at the right lung base with elevated right hemidiaphragm. Postoperative CABG and valve replacement. Chest X-Ray 12/25/17 00:00 CONCLUSION: Minimal right basilar density, stable Assessment and Plan - Assessment (1) COPD (chronic obstructive pulmonary disease) with acute bronchitis Code(s): J44.0 - Chronic obstructive pulmonary disease with acute lower respiratory infection; J20.9 - Acute bronchitis, unspecified Status: Acute - Plan 72 [facility] male patient of [facility] with medical hx significant for COPD presents with: Acute COPD Exacerbation: patient presented with SOB, wheezing. S/p IV solumedrol 125 mg by EVAC, s/p azithromycin 500 mg x1 in ER. - CXR reviewed, shows linear scarring or atelectasis at right lung base - BNP 15, doubt CHF. - Continue solumedrol 60 mg IV q8h due to significant wheezing on exam - Continue antibiotics with IV Levaquin 750 mg daily - Duonebs, continue home Symbicort - supplemental O2 as needed. Will try to wean off O2. - Blood cultures obtained, NGTD, no fever or leukocytosis - Incentive spirometer, acapella if patient able to follow instructions - Repeat CXR 12/25 stable - Still wheezing today however slowly improving, not yet ready for discharge Sepsis with C.difficile: new diagnosis on this admission. Meets sepsis with tachycardia and tachypnea, suspected source-C.difficile. -started on Vancomycin 125mg po qid (will need to continue for 2 weeks beyond completion of above antibiotics) -monitor BMs -consider changing fluoroquinolone antibiotic to cephalosporin if able to confirm no allergy or taken previously (pt has penicillin allergy) HTN - continue metoprolol 12.5 mg BID Dementia/Depression/Mood Disorder - continue Risperdal 0.5 mg HS CKD - Cr on admission 1.30, was similar back in November - Renally dose all meds and avoid nephrotoxic agents BPH - continue Flomax Sacral Ulcer -present on admission -consult wound care, appreciate recommendations Hallucinations/Encephalopathy: possibly steroid induced psychosis vs worsening dementia -will attempt to wean steroids jhoan -monitor -hallucinations currently resolved, appears at baseline dementia DVT Prophylaxis: Heparin sq Full code. Discharge Planning: Discharge pending further clinical improvement. Not yet ready for discharge. Plan to return to SNF at discharge.
[2017-12-26] MEDS: Metoprolol Tartrate 25 MG Tablet PO SCH ×2 (11:20→22:20)
[2017-12-26] MEDS: guaiFENesin 600 MG ER Tablet PO SCH ×2 (11:20→22:20)
[2017-12-26] MEDS: Senna/Docusate Sodium 8.6/50 MG Tablet PO SCH ×2 (11:20→22:20)
[2017-12-26] MEDS: Budesonide-Formoterol 80/4.5 MCG 6.9 GM Inhaler INH SCH ×2 (12:11→22:21)
[2017-12-26] MEDS: Heparin - SQ 10,000 UNITS/ML Vial SQ SCH ×2 (13:33→22:20)
[2017-12-27] MEDS: MethylPREDNISolone Sod Succinate Inj 125 MG/2 ML Vial IV.PUSH SCH ×3 (07:10→21:35)
[2017-12-27] MEDS: Heparin - SQ 10,000 UNITS/ML Vial SQ SCH ×3 (07:10→21:37)
--- NOTE | 2017-12-27 10:21 | P.PN ---
Subjective Interval history: Follow-up for COPD exacerbation, dementia, C. difficile. Patient appears much improved today. He is awake, alert, oriented to self, [facility], and states the year is 2007. He denies any cough. He denies any shortness of breath. He continues to have wheezing on exam. RN reports no significant BMs overnight, only scant amount of stool noted during bedding changes. No fevers overnight. The patient denies any abdominal pain, nausea, or vomiting. He is tolerating oral intake. Physical Exam Vital signs: Vital Signs 12/26/17 12:19 12/26/17 15:31 12/26/17 19:31 Temperature 98.0 F 98.9 F Pulse Rate 98 H 105 H 110 H Respiratory Rate 22 16 22 Blood Pressure 139/85 143/76 H Pulse Oximetry 93 L 94 L 12/26/17 21:25 12/26/17 22:00 12/27/17 00:00 Temperature Pulse Rate 110 H 94 H Respiratory Rate 26 H 18 17 Blood Pressure 147/87 H Pulse Oximetry 97 12/27/17 04:00 12/27/17 08:00 Temperature 98.9 F 97.8 F Pulse Rate 92 H 97 H Respiratory Rate 18 18 Blood Pressure 129/80 133/80 Pulse Oximetry 91 L 92 L Intake & Output 12/26/17 12/27/17 12/27/17 18:59 06:59 18:59 Intake Total 150 / 150 Balance 150 / 150 Intake: IV 150 / 150 Levaquin 750 mg Premix Inj 150 150 / 150 ML @ 100 mls/hr IV.SIG Q24H [facility] Rx#:[id number] Other: Date of Last Bowel Movement 12/26/17 12/26/17 Narrative: GENERAL: Well-nourished, well-developed confused elderly obese male patient in [facility]. SKIN: Warm and dry. No rash. HEENT: Normocephalic. Atraumatic. Pupils equal and round. Mucous membranes pink and moist. NECK: Supple. Trachea midline. CARDIOVASCULAR: Regular rate and rhythm. No murmur appreciated. RESPIRATORY: No accessory muscle use. Minimal expiratory wheezing throughout, much improved. Breath sounds equal bilaterally. GASTROINTESTINAL: Abdomen soft, non-tender, nondistended. Normoactive bowel sounds x4. MUSCULOSKELETAL: No obvious deformities. Extremities without clubbing, cyanosis , or edema. NEUROLOGICAL: Awake and alert, oriented to self only, occasionally oriented to [facility]. No obvious cranial nerve deficits. Moving all extremities spontaneously. Normal speech. PSYCHIATRIC: Insight and judgment poor. Results - Labs CBC & Chem 7: 12/26/17 06:18 12/26/17 06:18 Microbiology 12/22/17 17:15 Blood - Peripheral Aerobic Blood Culture - Preliminary No growth in 4 days 12/22/17 17:15 Blood - Peripheral Anaerobic Blood Culture - Preliminary No growth in 4 days 12/22/17 17:15 Blood - Peripheral Aerobic Blood Culture - Preliminary No growth in 4 days 12/22/17 17:15 Blood - Peripheral Anaerobic Blood Culture - Preliminary No growth in 4 days - Imaging Chest X-Ray 12/22/17 17:17 CONCLUSION: Linear scarring or atelectasis at the right lung base with elevated right hemidiaphragm. Postoperative CABG and valve replacement. Chest X-Ray 12/25/17 00:00 CONCLUSION: Minimal right basilar density, stable Assessment and Plan - Assessment (1) COPD (chronic obstructive pulmonary disease) with acute bronchitis Code(s): J44.0 - Chronic obstructive pulmonary disease with acute lower respiratory infection; J20.9 - Acute bronchitis, unspecified Status: Acute - Plan 72 yo male patient of [facility] with medical hx significant for COPD presents with: Acute COPD Exacerbation: patient presented with SOB, wheezing. S/p IV solumedrol 125 mg by EVAC, s/p azithromycin 500 mg x1 in ER. - CXR reviewed, shows linear scarring or atelectasis at right lung base - BNP 15, doubt CHF. - Continue solumedrol 60 mg IV q8h due to significant wheezing on exam - Continue antibiotics with IV Levaquin 750 mg daily x7days (complete on 12/28 ) - Duonebs, continue home Symbicort - supplemental O2 as needed, discussed with RN to wean off O2 to keep O2 sat >90% - Blood cultures obtained, NGTD, no fever or leukocytosis - Incentive spirometer, acapella if patient able to follow instructions - Repeat CXR 12/25 stable - The patient is slowly improving, much less wheezing on exam, however not yet ready for discharge Sepsis with C.difficile: new diagnosis on this admission. Meets sepsis with tachycardia and tachypnea, suspected source-C.difficile. -started on Vancomycin 125mg po qid (will need to continue for 2 weeks beyond completion of above antibiotics) -monitor BMs, only 12 BMs daily -consider changing fluoroquinolone antibiotic to cephalosporin if able to confirm no allergy or taken previously (pt has penicillin allergy) HTN - continue metoprolol 12.5 mg BID Dementia/Depression/Mood Disorder - continue Risperdal 0.5 mg HS CKD - Cr on admission 1.30, was similar back in November - Renally dose all meds and avoid nephrotoxic agents BPH - continue Flomax Sacral Ulcer -present on admission -consult wound care, appreciate recommendations Hallucinations/Encephalopathy: possibly steroid induced psychosis vs worsening dementia -will attempt to wean steroids jhoan -monitor -hallucinations currently resolved, appears at baseline dementia DVT Prophylaxis: Heparin sq Full code. Discharge Planning: Discharge pending further clinical improvement. Improving, however not yet ready for discharge. Plan to return to [facility] at discharge.
[2017-12-27] MEDS: Senna/Docusate Sodium 8.6/50 MG Tablet PO SCH ×2 (11:05→21:44)
[2017-12-27] MEDS: guaiFENesin 600 MG ER Tablet PO SCH ×2 (11:05→21:35)
[2017-12-27] MEDS: Metoprolol Tartrate 25 MG Tablet PO SCH ×2 (11:05→21:38)
[2017-12-27] MEDS: Budesonide-Formoterol 80/4.5 MCG 6.9 GM Inhaler INH SCH ×2 (11:06→21:00)
--- NOTE | 2017-12-27 15:31 | P.DIET ---
Nutritional Evaluation Type of nutrition evaluation: initial Nutrition screening: [facility] [place] Screening comments: Wound Subjective Barriers to Nutrition: Refuses to eat at times Subjective Comments: Pt visited and encouraged to have po intake for meals/fluids. Food preferences taken. Nursing reports pt po intake poor today including pt refused lunch. Objective - Diagnosis Acute Exacerbation of Chronic COPD - Objective Newell body weight: 75.5 kg % IBW: 180 Body Weight Used for Calculations: IBW (75.5 kg) Energy Needs - Lower Range (kCal/kg): 30 Energy Needs - Upper Range (kCal/kg): 35 Lower Limit kCal/kg (kCals): 2,265 Upper Limit kCal/kg (kCals): 2,643 Lower Limit Protein Factor (Grams per Kg): 1.4 Upper Limit Protein Factor (Grams per Kg): 1.7 Lower Protein Needs (Protein): 106 Upper Protein Needs (Protein): 128 Fluid Factor (ml/kg): 30 Estimated Fluid Needs (ml): 2,265 Dietitian Reviewed in Medical Record: Current diet, Curent medications, Intake & Output, Labs, Medical history, Wound/DTI Diet Order: Cardiac Oral Diet Intake Amount: Fair 50-75% Wound Care Note: 12/24 WOCN note: Left Buttock DTI Objective Comments: PMH: Anxiety, Depression, COPD, Dementia, HTN, CHF, GERD, Hemiplegia, hyperlipidemia, Insomnia, kidney disease, neoplasm of prostate, non-traumatic intraventricular intracerebral hemorrhage, schizophrenia Creatinine 1.45, estGFR 48 c-diff positive, +BM Assessment Assessment: Pt is at nutritional risk r/t increased needs for wound healing. Variable po intake w/poor po intake today. Agness food preferences. Send Ensure Enlive BID(= 350 kcal and 20g protein/serving)w/HMB for wound healing. Labs reviewed-monitor renal labs. Dietitian following. Recommendations: 1.Agness food preferences 2.Send Ensure Enlive BID 3.Dietitian following Dietitian to Monitor: Lab values, Renal labs, Supplement acceptance, Intake & Output, Weight change, PO Intake, Wound/skin status, Medical course
[2017-12-28] MEDS: MethylPREDNISolone Sod Succinate Inj 125 MG/2 ML Vial IV.PUSH SCH ×2 (05:52→11:48)
[2017-12-28] MEDS: Heparin - SQ 10,000 UNITS/ML Vial SQ SCH ×3 (05:53→21:03)
[2017-12-28] MEDS: Metoprolol Tartrate 25 MG Tablet PO SCH ×2 (09:19→20:53)
[2017-12-28] MEDS: guaiFENesin 600 MG ER Tablet PO SCH ×2 (09:19→20:53)
[2017-12-28] MEDS: Senna/Docusate Sodium 8.6/50 MG Tablet PO SCH ×2 (09:20→20:55)
[2017-12-28] MEDS: Budesonide-Formoterol 80/4.5 MCG 6.9 GM Inhaler INH SCH ×2 (09:21→22:27)
[2017-12-28 09:44] LABS: Calcium 8.7 mg/dL (8.5-10.1); Carbon Dioxide 27.1 meq/L (21.0-32.0); Potassium 3.9 meq/L (3.5-5.1)
--- NOTE | 2017-12-28 11:02 | P.PN ---
Subjective Interval history: Follow-up for COPD exacerbation, C. difficile. The patient is awake, alert, oriented to self, [place], and president Miguelito, does not know the month/year. He endorses some shortness of breath with occasional nonproductive cough. Denies fevers or chills. He does report that he is still wheezing. He denies any diarrhea today. Denies any abdominal pain/nausea/vomiting. He is tolerating oral intake. He has no other medical complaints at this time. Physical Exam Vital signs: Vital Signs 12/27/17 11:10 12/27/17 11:22 12/27/17 16:00 Temperature 98.1 F 97.9 F Pulse Rate 99 H 76 Respiratory Rate 18 18 Blood Pressure 155/84 H 140/75 Pulse Oximetry 93 L 92 L 89 L 12/27/17 20:00 12/27/17 20:35 12/28/17 00:00 Temperature 98.6 F 98.3 F Pulse Rate 72 72 Respiratory Rate 20 20 Blood Pressure 142/65 H 119/73 Pulse Oximetry 92 L 95 90 L 12/28/17 04:00 12/28/17 08:00 Temperature 97.7 F 98.8 F Pulse Rate 83 85 Respiratory Rate 20 20 Blood Pressure 125/80 141/98 H Pulse Oximetry 91 L 93 L Intake & Output 12/27/17 12/28/17 12/28/17 18:59 06:59 18:59 Intake Total 150 / 150 150 / 150 Balance 150 / 150 150 / 150 Intake: IV 150 / 150 150 / 150 Levaquin 750 mg Premix Inj 150 150 / 150 150 / 150 ML @ 100 mls/hr IV.SIG Q24H [facility] Rx#:[id number] Other: # Voids 1 Narrative: GENERAL: Well-nourished, well-developed confused elderly obese male patient in [facility]. SKIN: Warm and dry. No rash. HEENT: Normocephalic. Atraumatic. Pupils equal and round. Mucous membranes pink and moist. NECK: Supple. Trachea midline. CARDIOVASCULAR: Regular rate and rhythm. No murmur appreciated. RESPIRATORY: No accessory muscle use. Mild expiratory wheezing throughout, slowly improving. Breath sounds equal bilaterally. GASTROINTESTINAL: Abdomen soft, non-tender, nondistended. Normoactive bowel sounds x4. MUSCULOSKELETAL: No obvious deformities. Extremities without clubbing, cyanosis , or edema. NEUROLOGICAL: Awake and alert, oriented to self, [facility], occasionally oriented to President Miguelito. No obvious cranial nerve deficits. Moving all extremities spontaneously. Normal speech. PSYCHIATRIC: Insight and judgment poor. Results - Labs CBC & Chem 7: 12/26/17 06:18 12/28/17 08:22 Laboratory Results - last 24 hr 12/28/17 12/28/17 06:02 08:22 Sodium 139 Potassium 3.9 Chloride 103 Carbon Dioxide 27.1 Anion Gap 9 BUN 35 H Creatinine 1.06 Estimated GFR 68 L POC Glucose 136 H Random Glucose 138 H Calcium 8.7 Microbiology 12/22/17 17:15 Blood - Peripheral Aerobic Blood Culture - Final No growth in 5 days 12/22/17 17:15 Blood - Peripheral Anaerobic Blood Culture - Final No growth in 5 days 12/22/17 17:15 Blood - Peripheral Aerobic Blood Culture - Final No growth in 5 days 12/22/17 17:15 Blood - Peripheral Anaerobic Blood Culture - Final No growth in 5 days - Imaging Chest X-Ray 12/22/17 17:17 CONCLUSION: Linear scarring or atelectasis at the right lung base with elevated right hemidiaphragm. Postoperative CABG and valve replacement. Chest X-Ray 12/25/17 00:00 CONCLUSION: Minimal right basilar density, stable Assessment and Plan - Assessment (1) COPD (chronic obstructive pulmonary disease) with acute bronchitis Code(s): J44.0 - Chronic obstructive pulmonary disease with acute lower respiratory infection; J20.9 - Acute bronchitis, unspecified Status: Acute - Plan 72 yo male patient of assisted with medical hx significant for COPD presents with: Acute COPD Exacerbation: patient presented with SOB, wheezing. S/p IV solumedrol 125 mg by EVAC, s/p azithromycin 500 mg x1 in ER. - CXR reviewed, shows linear scarring or atelectasis at right lung base - BNP 15, doubt CHF. - Continue solumedrol 60 mg IV q8h due to significant wheezing on exam - Continue antibiotics with IV Levaquin 750 mg daily x7days (complete on 12/28 ) - Duonebs, continue home Symbicort - supplemental O2 as needed, discussed with RN to wean off O2 to keep O2 sat >90% - Blood cultures obtained, NGTD, no fever or leukocytosis - Incentive spirometer, acapella if patient able to follow instructions - Repeat CXR 12/25 stable - The patient is slowly improving, however still wheezing, will consult pulmonology Sepsis with C.difficile: new diagnosis on this admission. Meets sepsis with tachycardia and tachypnea, suspected source-C.difficile. -started on Vancomycin 125mg po qid (will need to continue for 2 weeks beyond completion of above antibiotics) -monitor BMs, improved, only 12 small BMs daily HTN - continue metoprolol 12.5 mg BID Dementia/Depression/Mood Disorder - continue Risperdal 0.5 mg HS CKD - Cr on admission 06.19, was similar back in November - Renally dose all meds and avoid nephrotoxic agents BPH - continue Flomax Sacral Ulcer -present on admission -consult wound care, appreciate recommendations Hallucinations/Encephalopathy: possibly steroid induced psychosis vs worsening dementia -will attempt to wean steroids jhoan -monitor -hallucinations currently resolved, appears at baseline dementia DVT Prophylaxis: Heparin sq Full code. Discharge Planning: Discharge pending further clinical improvement. Improving, however not yet ready for discharge. Pulmonology has been consulted. Plan to return to [facility] at discharge.
--- NOTE | 2017-12-28 19:42 | MB ---
cc: Robert Reid MD DATE: 12/28/2017 HISTORY OF PRESENT ILLNESS: Jorge is a 72-year-old white male, very pleasant, has a mild dementia, apparently has had previous strokes and I am asked to see him because he has some persistent wheezing. He admits that he was a former smoker, but quit smoking years ago, and at the present time, lying comfortably in bed. He says he is not having any difficulty breathing. He was originally admitted on 12/22/2017 complaining of congestion to the staff at the correction at which he resides. When I asked him where he lives, though he said he lived in [place] and he was over here because he was taking some classes at [employer]. Most of this record is taken from the chart in light of the less than reliable information he is providing. PAST MEDICAL HISTORY: Listed as CHF. He has had a previous bypass with valve replacement, depression, gastroesophageal reflux, hemiparesis from previous stroke, hyperlipidemia, prostate neoplasm, nontraumatic intracerebral hemorrhage in the past and schizophrenia. ALLERGIES: AMOXICILLIN. MEDICATIONS: Reviewed in the EMR. SOCIAL HISTORY: Apparently, the patient does live in a nursing facility. Former smoker, but no longer smoking and I doubt he has access to alcohol. PHYSICAL EXAMINATION: GENERAL: Again, the patient is not complaining particularly at the present time, says that he is breathing comfortably with minimal cough. VITAL SIGNS: 97, blood pressure 140/70, room air saturation 93%, pulse is 80 and his respirations are 18-22. HEENT: Sclerae are anicteric. Mucous membranes are moist. NECK: Neck veins are flat. CHEST: He does have some fine wheezing in both lungs, but no audible congestion. No basilar rales. HEART: No harsh murmur. No audible S3. Neck veins are flat. EXTREMITIES: A little peripheral edema, no calf tenderness. No cyanosis or clubbing. Chest x-ray, AP view really unremarkable other than what appears to be a stable right basilar density, possibly scarring. LABORATORY DATA: White count 12,000, hemoglobin 14. Arterial blood gas 12/25/2017, today is 12/28/2017, pO2 is 56 on room air, pH of 7.4, pCO2 of 37, O2 saturation at that time 88%, currently on room air 93%. BUN is 21, creatinine is 1.2. DISCUSSION: Mr. Rivera is a former smoker. He does have a diagnosis at least listed in the record of COPD. He is currently on Symbicort 80 two puffs twice a day along with IV Solu-Medrol and p.r.n. albuterol. I would suggest switching him to oral prednisone. He really looks fairly stable. Taper him over the course of the next 7-10 days if he is stable. Continue him on p.r.n. aerosol treatments for congestion or shortness of breath and of course continue his maintenance inhaler as Symbicort if that is what he has been on previously. Pulmonary status actually appears stable. I do not know what his functional status is or if he is up and about, but at this point, certainly he is comfortable at rest. R. Trevor Reid MD RSW/ct , 05:43 PM , 05:50 PM
[2017-12-28] MEDS: predniSONE 20 MG Tablet PO SCH (20:53)
[2017-12-29] MEDS: Heparin - SQ 10,000 UNITS/ML Vial SQ SCH ×2 (05:19→15:18)
[2017-12-29] MEDS: Metoprolol Tartrate 25 MG Tablet PO SCH (09:04)
[2017-12-29] MEDS: guaiFENesin 600 MG ER Tablet PO SCH (09:04)
[2017-12-29] MEDS: predniSONE 20 MG Tablet PO SCH (09:04)
[2017-12-29] MEDS: Senna/Docusate Sodium 8.6/50 MG Tablet PO SCH (09:04)
[2017-12-29] MEDS: Budesonide-Formoterol 80/4.5 MCG 6.9 GM Inhaler INH SCH (09:12)
--- NOTE | 2017-12-29 14:57 | P.DS ---
Date of admission: 12/23/17 13:53 Primary care physician: Kellen Blackwood DO Brief History from admission: This is a 72-year-old male patient with a medical history significant for COPD and dementia who was brought to the ER from his intermediate due to a chief complaint of congestion and increased work of breathing for the past 2 days. At the intermediate he was noted to have an elevated temperature of 101. In route to the ER the patient received 2 nebulizers and a dose of Solu-Medrol 125 mg IV. When the patient got to the ER he was still exhibiting some increased work of breathing and wheezing. He was given a dose of azithromycin, and 2 nebulizers. Patient breathing a little butter, but was desaturating when nasal canula removed. DS: Medications - Discharge Medications Prescriptions: hydrocodone-acetaminophen [[place]] 1 tab PO Q6H PRN #12 tab PRN Reason: Acute Pain prednisone 20 mg PO BID #8 tab temazepam [Restoril] 7.5 mg PO HS PRN #3 cap PRN Reason: Insomnia vancomycin 125 mg PO QID #40 cap DS: Summary Hospital Course: Patient was admitted, started on IV steroids and Levaquin. His respiratory status had stabilized. However he developed sepsis 2/2 C. difficile diarrhea, and started on vancomycin w/ improvement w/ cessation of his Levaquin. His diarrhea had also significantly improved shortly after vancomycin was started. Patient needs to be tapered gradually on his prednisone for his COPD. After his 20 mg regimen twice daily, ideally he should go down to 10 mg twice daily, and so on. Patient has been maximal benefit from hospitalization and is clinically stable for discharge. - Time Spent with Patient Total time spent providing and/or coordinating discharge services: Less than 30 minutes - Quality: VTE Deep Vein Thrombosis/Pulmonary Embolism Present on Admission: No Exam Vital signs: Vital Signs 12/28/17 16:00 12/28/17 20:00 12/29/17 00:00 Temperature 98.9 F 97.8 F 97.3 F L Pulse Rate 88 73 73 Respiratory Rate 20 20 20 Blood Pressure 148/82 H 173/81 H 150/71 H Pulse Oximetry 93 L 91 L 90 L 12/29/17 04:00 12/29/17 08:00 12/29/17 12:00 Temperature 97.5 F L 97.5 F L 97.9 F Pulse Rate 65 70 71 Respiratory Rate 18 18 18 Blood Pressure 133/66 150/69 H 164/77 H Pulse Oximetry 94 L 91 L 91 L Intake & Output 12/28/17 12/29/17 12/29/17 18:59 06:59 18:59 Intake Total 150 / 150 Balance 150 / 150 Intake: IV 150 / 150 Levaquin 750 mg Premix Inj 150 150 / 150 ML @ 100 mls/hr IV.SIG Q24H [facility] Rx#:[id number] Other: # Voids 1 Date of Last Bowel Movement 12/28/17 Results Procedures completed during hospitalization: . - Impressions ITS Impressions Chest X-Ray 12/25/17 00:00 CONCLUSION: Minimal right basilar density, stable Discharge Plan - Discharge Disposition Patient Disposition: 03 Discharge to SNF - Discharge Condition Condition: Stable - Discharge Order Discharge Orders: Discharge Order (Routine); Ordered 12/29/17 Ordered By: Jacob Joseph - Physicians Team Primary Care Provider: Kellen Blackwood Attending Provider: Jacob Joseph Other Providers: Trevor Reid MD
== END 2017-12-29 18:25 ==
LOC: NEDA 16:56 → NEPC 16:56 → NEPGCP 19:31 → N04 12-28 19:00
PROVIDERS: ADMIT Hospitalist; ATTEND Hospitalist